=== PATIENT | female | born 1940 | race Caucasian/White ===

== ENCOUNTER → 2020-05-23 | Outpatient (CLI) | payer MEDICARE ==
[~2020-05-23] MED LIST: CHOL200024 PO; CITA40TA5 PO; DIAZ5TAB PO; LORA1TAB PO; OXYC5CAP2 PO; TRAM50TA2 PO; VITAMIN B12 PO; VITAMIN E PO
== END | disposition home or self-care (01) ==
LOC: CFH 10:59
PROVIDERS: ATTEND Dermatology
DX: S92.314A Nondisplaced fracture of first metatarsal bone, right foot, initial encounter for closed fracture (principal); X58.XXXA Exposure to other specified factors, initial encounter; Y93.89 Activity, other specified; Y92.89 Other specified places as the place of occurrence of the external cause; Y99.8 Other external cause status